=== PATIENT | male | born 1950 | race American Indian/Alaskan Native ===

== ENCOUNTER 2018-01-25 22:59 | Emergency (ER) | payer MEDICARE, OTHER ==
[2018-01-26 00:11] LABS: Basophils % (Auto) 0.4 % (0.0-1.8); Eosinophils # (Auto) 0.1 K/mm3 (0.0-0.4); Eosinophils % (Auto) 1.8 % (0.0-4.3); Hematocrit 44.3 % (35.5-45.6); Hemoglobin 14.7 gm/dl (11.8-15.2); Lymphocytes # (Auto) 1.4 K/mm3 (1.2-5.4); Lymphocytes % (Auto) 25.6 % (13.4-35.0); Mean Corpuscular HGB Conc 33 % (32-34); Mean Corpuscular Hemoglobin 30 pg (28-32); Mean Corpuscular Volume 92 fl (84-94); Monocytes # (Auto) 0.7 K/mm3 (0.0-0.8); Platelet Count 191 K/mm3 (140-440); Red Blood Count 4.83 M/mm3 (3.65-5.03); Red Cell Distribution Width 12.9 % (13.2-15.2)
[2018-01-26 00:45] LABS: BUN/Creatinine Ratio 9; Blood Urea Nitrogen 9 mg/dL (9-20); Calcium 9.4 mg/dL (8.4-10.2); Hemolysis Index 43
--- NOTE | 2018-01-26 01:00 | XRay Report ---
FINAL REPORT EXAM: XR CHEST ROUTINE 2V HISTORY: Shortness of breath TECHNIQUE: 2 views of the chest. PRIORS: None. FINDINGS: The cardiomediastinal silhouette appears normal. The lungs are clear. The bones and soft tissues are unremarkable. IMPRESSION: No evidence of acute cardiopulmonary disease
[2018-01-26] MEDS ORDERED: PEPCID PO ONE (03:56)
--- NOTE | 2018-01-26 04:15 | Emergency Department Report ---
HPI - General Chief Complaint: Chest Pain Time Seen by Provider: 01/26/18 03:52 - HPI HPI: 67-year-old male presents to ED with chest pain that started 7 hours ago, patient stated he was sleeping and noticed he had some burning to the epigastric area radiating to his throat. Stated pain was 7 out of 10 without shortness of breath, without diaphoresis. Patient took some Mylanta which helps symptoms. But he was encouraged to come to ED for follow-up by a female friend. Patient denies any history of coronary artery disease, does not smoke, has a history of blood pressure. ED Past Medical Hx - Past Medical History Previous Medical History?: Yes Hx Hypertension: Yes Additional medical history: HEP C/ ULCERS - Surgical History Past Surgical History?: Yes Additional Surgical History: ULCERS - Social History Smoking Status: Former Smoker Substance Use Type: Alcohol - Medications Home Medications: Home Medications Medication Instructions Recorded Confirmed Last Taken Type Valsartan [Diovan] 40 mg PO DAILY 04/14/16 04/14/16 Unknown History Zolpidem [Ambien] 5 mg PO QHS 04/14/16 04/14/16 Unknown History Omeprazole 20 mg PO DAILY #30 capsule. 01/26/18 Unknown Rx ED Review of Systems ROS: Stated complaint: CP Other details as noted in HPI Comment: All other systems reviewed and negative Cardiovascular: chest pain Gastrointestinal: denies: abdominal pain, nausea, vomiting Physical Exam - Physical Exam Vital Signs: Vital Signs 01/25/18 01/25/18 23:17 23:26 Temperature 99.3 F Pulse Rate 94 H 91 H Respiratory 20 Rate Blood Pressure 134/86 134/86 O2 Sat by Pulse 94 95 Oximetry Physical Exam: - Physical Exam Physical Exam: - General Limitations: No Limitations General appearance: alert, in no apparent distress. - Head Head exam: Present: atraumatic, normocephalic - Eye Eye exam: Present: normal appearance - ENT ENT exam: Present: mucous membranes moist - Neck Neck exam: Present: normal inspection - Respiratory Respiratory exam: Present: normal lung sounds bilaterally. Absent: respiratory distress - Cardiovascular Cardiovascular Exam: Present: normal rhythm, normal rate. Absent: systolic murmur, diastolic murmur, rubs, gallop - GI/Abdominal GI/Abdominal exam: Present: soft, normal bowel sounds - Extremities Exam Extremities exam: Present: normal inspection - Back Exam Back exam: Present: normal inspection - Neurological Exam Neurological exam: Present: alert, oriented X3 - Psychiatric Psychiatric exam: normal affect and mood - Skin Skin exam: Present: warm, dry, intact, normal color. Absent: rash ED Course Vital Signs 01/25/18 01/25/18 23:17 23:26 Temperature 99.3 F Pulse Rate 94 H 91 H Respiratory 20 Rate Blood Pressure 134/86 134/86 O2 Sat by Pulse 94 95 Oximetry - Reevaluation(s) Reevaluation #1: 01/26/18 04:12 Troponins negative 2, advised patient regarding admission for rule out ACS. He refused admission. He states he feels much better pain-free and wants to go home. ED Medical Decision Making - Lab Data Result diagrams: 01/25/18 23:35 01/25/18 23:35 Critical care attestation.: If time is entered above; I have spent that time in minutes in the direct care of this critically ill patient, excluding procedure time. ED Disposition Clinical Impression: Chest pain Qualifiers: Chest pain type: other chest pain Qualified Code(s): R07.89 - Other chest pain ; R07.8 - Other chest pain Disposition: DC-01 TO HOME OR SELFCARE Is pt being admited?: No Does the pt Need Aspirin: No Condition: Stable Instructions: Chest Pain (ED) Prescriptions: Omeprazole 20 mg PO DAILY #30 capsule. Referrals: NIEVES ALONSO MD [Primary Care Provider] - 3-5 Days
[2018-01-26 04:36] VITALS: BP 140/93
== END 2018-01-26 04:37 | disposition home or self-care (01) ==
LOC: ED 22:59
DX: R07.89 Other chest pain (principal); R10.13 Epigastric pain; R06.02 Shortness of breath; I10 Essential (primary) hypertension; Z87.891 Personal history of nicotine dependence; Z88.2 Allergy status to sulfonamides
CPT/HCPCS: 36415; 71046; 80048; 84484; 85025; 93005; 93010